=== PATIENT | male | born 1965 | race Two or more races ===

== ENCOUNTER 2018-08-10 22:07 | Emergency (ER) | payer OTHER ==
[~2018-08-10] VITALS: Ht 170.2 cm; Wt 85.7 kg
--- NOTE | 2018-08-10 22:22 | NUR ---
ED Nurse Note: PT CAME FOM HOME C/O LEFT THUMB LACERATION. LAC IS NOT ACTIVELY BLEEDING. PER PT HE CUT HIS FINGER 7 HOURS AGO WITH A CORPORATE RISK ANALYST PAIN 5/10
[2018-08-10 22:24] VITALS: BP 119/83
[2018-08-10] MEDS ORDERED: Bacitracin Oint UD TOPIC ONE ×2 (23:18→23:30)
[2018-08-10] MEDS ORDERED: CEPHALEXIN500 MG ORAL (23:26)
--- NOTE | 2018-08-10 23:26 | Emergency Room Report ---
History of Present Illness General Chief Complaint: Laceration Source: Patient Present Illness HPI Is a 52-year-old male who is right-hand dominant. He presents with chief complaint of laceration to his left hand. He was using a eyeglass lens grinder to cut a metal conduit. He slipped and cut himself at the base of the left thumb. This occurred 6-7 hours prior to arrival. Bleeding controlled. Throbbing pain in that area. Tetanus last year. No nausea no vomiting. No fever chills. Allergies: Coded Allergies: No Known Allergies (Unverified , 08/10/18) Patient History Past Medical History: see triage record, old chart reviewed Past Surgical History: other Pertinent Family History: none Social History: Denies: smoking Immunizations: UTD Reviewed Nursing Documentation: PMH: Agreed; PSxH: Agreed Nursing Documentation-PMH Past Medical History: No Stated History Review of Systems Eye: Denies: eye pain, blurred vision ENT: Denies: ear pain, nose congestion, throat swelling Respiratory: Denies: cough, shortness of breath Cardiovascular: Denies: chest pain, palpitations Gastrointestinal: Denies: abdominal pain, diarrhea, nausea, vomiting Musculoskeletal: Denies: back pain, joint pain Skin: Denies: rash Neurological: Denies: headache, numbness Endocrine: Denies: increased thirst, increased urine Hematologic/Lymphatic: Denies: easy bruising All Other Systems: negative except mentioned in HPI Physical Exam Vital Signs Date Time Temp Pulse Resp B/P (MAP) Pulse Ox O2 Delivery O2 Flow Rate FiO2 08/10/18 22:16 98.2 57 18 119/83 98 Room Air vitals normal Sp02 EP Interpretation: reviewed, normal General Appearance: well appearing, no apparent distress, alert Head: normocephalic, atraumatic Eyes: bilateral eye PERRL, bilateral eye EOMI ENT: hearing grossly normal, normal pharynx Neck: full range of motion, supple, no meningismus Respiratory: chest non-tender, lungs clear, normal breath sounds Cardiovascular #1: regular rate, rhythm, no murmur Gastrointestinal: normal bowel sounds, non tender, no mass, no organomegaly, no bruit, non-distended Musculoskeletal: back normal, gait/station normal, normal range of motion, other - Left hand: Over the hyperthenar eminence, there is a 3 cm laceration. There is a blackish color metallic foreign body. No tendon laceration. Full range of motion. Sensation normal. Psychiatric: mood/affect normal Skin: warm/dry Procedures Laceration/Wound Repair Laceration/Wound Repair : Consent: Verbal Wound Location: upper extremity Wound's Depth, Shape: linear, irregular, contused tissue Wound Length (cm): 3 Wound Explored: contaminated Irrigated w/ Saline (ccs): 1000 Betadine Prep?: Yes Anesthesia: Lidocaine w/ Epi Volume Anesthetic (ccs): 5 Wound Debrided: minimal Wound Repaired With: sutures Suture Size/Type: 4:0, proline Number of Sutures: 6 Patient Tolerated: Well Complications: None Medical Decision Making Diagnostic Impression: Primary Impression: Laceration Additional Impression: Foreign body in soft tissue ER Course Patient with laceration with a foreign body. Increased risk for infection. Tetanus up-to-date. No tendon laceration or nerve damage. Last Vital Signs Date Time Temp Pulse Resp B/P (MAP) Pulse Ox O2 Delivery O2 Flow Rate FiO2 08/10/18 22:24 98.2 57 18 119/83 98 Room Air Status: improved Disposition: HOME, SELF-CARE Condition: Stable Scripts Cephalexin* (KEFLEX*) 500 Mg Capsule 500 MG ORAL TID, #21 CAP 0 Refills Prov: Thom Dumont MD 08/10/18 Patient Instructions: Laceration Care, Adult Additional Instructions: Keep wound clean. Suture out in 7 days. Follow-up with your doctor. Return if worse. Thom Dumont MD Aug 10, 2018 23:26
[2018-08-10 23:31] VITALS: BP 119/83
--- NOTE | 2018-08-10 23:31 | NUR ---
ER DISCHARGE NOTE: Patient is cleared to be discharged per ERMD, pt is aox4, on room air, with stable vital signs. pt was given dc and prescription instructions, pt was able to verbalize understanding, pt id band removed. pt is able to ambulate with steady gait. pt took all belongings.
== END 2018-08-10 23:31 | disposition home or self-care (01) ==
LOC: EMR 22:51
DX: S61.022A Laceration with foreign body of left thumb without damage to nail, initial encounter (principal); W29.8XXA Contact with other powered hand tools and household machinery, initial encounter; Y92.9 Unspecified place or not applicable
CPT/HCPCS: 99282

== ENCOUNTER 2019-12-17 17:43 | Emergency (ER) | payer OTHER ==
[~2019-12-17] VITALS: Ht 170.2 cm; Wt 86.2 kg
[~2019-12-17 17:43] MED LIST: CEPHALEXIN500 MG ORAL
[2019-12-17 17:58] VITALS: BP 134/93
--- NOTE | 2019-12-17 17:58 | NUR ---
ED Nurse Note: Patient walked in to ER due to left index finger laceration x45 min. Per pt, he accidentally cut his finger with a knife. Pt applied pressure to control the bleeding. AAOx4, verbally responsive.
[2019-12-17] MEDS ORDERED: Tylenol #3 tab (300mg/30mg) ORAL ONE (18:15)
[2019-12-17] MEDS ORDERED: Lidocaine 1% MPF 10mg/ml 5ml INJ ONE (18:15)
[2019-12-17] MEDS ORDERED: Bacitracin Oint UD TOPIC ONE (18:15)
--- NOTE | 2019-12-17 19:05 | NUR ---
ED Nurse Note: Report received from ALONSO Burrows.
--- NOTE | 2019-12-17 19:07 | Emergency Room Report ---
History of Present Illness General Chief Complaint: Laceration Source: Patient Present Illness HPI 54-year-old male who is right-hand dominant presents to the emergency department complaining of laceration to the left index finger which occurred approximately 45 minutes prior to arrival. Patient reports he sustained a unintentional normal laceration from using a window scraper with the razor blade. Patient denies taking blood thinning medications. Patient reports moderate bleeding. Patient denies loss of feeling in the affected finger. 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 He reports he is up-to-date with tetanus vaccinations. He denies suspicion of foreign body. No other aggravating or relieving factors at this time. 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 Patient History Past Medical History: old chart reviewed Past Surgical History: none Pertinent Family History: none Reviewed Nursing Documentation: PMH: Agreed; PSxH: Agreed Nursing Documentation-PMH Past Medical History: No Stated History Review of Systems All Other Systems: negative except mentioned in HPI Physical Exam Vital Signs Date Time Temp Pulse Resp B/P (MAP) Pulse Ox O2 Delivery O2 Flow Rate FiO2 12/17/19 17:54 98.2 84 20 134/93 (107) 99 Room Air Sp02 EP Interpretation: reviewed, normal General Appearance: no apparent distress, alert, GCS 15, non-toxic Head: normocephalic, atraumatic Eyes: bilateral eye normal inspection, bilateral eye PERRL ENT: hearing grossly normal, normal voice Neck: full range of motion Respiratory: lungs clear, normal breath sounds, speaking full sentences Cardiovascular #1: regular rate, rhythm, normal capillary refill Musculoskeletal: back normal, normal range of motion, gait/station normal, non- tender, other - Left index finger laceration, normal range of motion against resistance of distal phalanyx Neurologic: alert, motor strength/tone normal, oriented x3, sensory intact, responsive, speech normal Psychiatric: judgement/insight normal Skin: laceration - Left distal index laceration approx 1.5 cm in length. Pt. able to fully extend and flex the left index finger. the DIP and PIP were isolated and pt. able to flex the index finger against resistance. No evidence of tendon involvement. Sensation is grossly intact distal to the laceration/ left index finger pad. Pt. has good capillary refill of the left index finger. Procedures Laceration/Wound Repair Laceration/Wound Repair : Consent: Emergent Wound Location: upper extremity - left index finger Wound's Depth, Shape: linear Wound Length (cm): 1 Wound Explored: contaminated Irrigated w/ Saline (ccs): 500 Betadine Prep?: No Anesthesia: 1% Lidocaine Volume Anesthetic (ccs): 5 Wound Debrided: None Wound Repaired With: sutures Suture Size/Type: 4:0 - three 5.0 sutures were placed, and 7 4.0 sutures Number of Sutures: 10 Layer Closure?: No Sterile Dressing Applied?: Yes Splint Applied?: Yes Type of Splint Applied: Left index finger splint. Sling Applied?: Yes Patient Tolerated: Well Complications: None Medical Decision Making PA Attestation Dr. Clements Is my supervising Physician whom patient management has been discussed with. Diagnostic Impression: Primary Impression: Laceration ER Course 54-year-old male who is right-hand dominant presents to the emergency department complaining of laceration to the left index finger which occurred approximately 45 minutes prior to arrival. Patient reports he sustained a unintentional normal laceration from using a window scraper with the razor blade. Patient denies taking blood thinning medications. Patient reports moderate bleeding. Patient denies loss of feeling in the affected finger. 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 He reports he is up-to-date with tetanus vaccinations. He denies suspicion of foreign body. No other aggravating or relieving factors at this time. Ddx considered but are not limited to laceration, tendon injury, cellulitis, amputation,circulatory compromise, FB just to name a few. Vital signs: are WNL, pt. is afebrile H&PE are most consistent with: Left distal index laceration approx 1.5 cm in length. Pt. able to fully extend and flex the left index finger. the DIP and PIP were isolated and pt. able to flex the index finger against resistance. No evidence of tendon involvement. Sensation is grossly intact distal to the laceration/ left index finger pad. Pt. has good capillary refill of the left index finger. ORDERS: none required at this time, the diagnosis is clinical ED INTERVENTIONS: - Tylenol # 3 PO - The wound was copiously irrigated with normal saline, tourniquet was applied at 181, and at 1815 bleeding was controlled and the laceration was explored for foreign body for which no FB was found. - pt. is anesthetized by digital finger block with 1%lidocaine using 5ml - The wound was approximated and closed using 10 interrupted sutures. - irrigation of dry blood from suture placement procedure, Bacitracin and sterile dressing is applied. - Left index finger splint applied by reproduction technician. Pt. remains neurovascularly intact. -Left arm Sling applied by reproduction technician. Pt. remains neurovascularly intact. Discussed with patient: That we make every effort to approximate the laceration as best as we can so that scarring will be as cosmetically pleasing as possible with our limited cosmetic skill set in the Emergency dept. Regardless of our best efforts there will be scarring after laceration repair. The extent of scarring is unknown at this time. d/w Pt. need for hand specialist evaluation as an outpatient. DISCHARGE: At this time pt. is stable for d/c to home. Will provide printed patient care instructions, and any necessary prescriptions. Care plan and follow up instructions have been discussed with the patient prior to discharge. Last Vital Signs Date Time Temp Pulse Resp B/P (MAP) Pulse Ox O2 Delivery O2 Flow Rate FiO2 12/17/19 17:58 98.2 84 20 134/93 99 Room Air Status: improved Disposition: HOME, SELF-CARE Condition: Stable Scripts Mupirocin* (MUPIROCIN*) 22 Gm Oint...g. 1 APPLIC TOPIC THREE TIMES A DAY, #22 GM Prov: Susie Merchant 12/17/19 Cephalexin* (KEFLEX*) 500 Mg Capsule 500 MG ORAL EVERY 12 HOURS, #14 CAP 0 Refills Prov: Susie Merchant 12/17/19 Referrals: NOT CHOSEN [facility]/,REFERRING (PCP) Patient Instructions: Laceration Care, Adult Additional Instructions: Take medications as directed. SUTURES TO BE REMOVED IN 14 DAYS Follow up with a Primary Care Provider in 3-5 days, even if your symptoms have resolved. --Please review list of primary care clinics, if you do not already have a primary care provider Return sooner to ED if new symptoms occur, or current symptoms become worse. - Please note that this Emergency Department Report was dictated using Dragon amf mechanic technology software, occasionally this can lead to erroneous entry secondary to interpretation by the dictation equipment. Susie Merchant Dec 17, 2019 19:07
[2019-12-17] MEDS ORDERED: MUPIROCIN22 GM TOPIC (19:15)
[2019-12-17] MEDS ORDERED: CEPHALEXIN500 MG ORAL (19:15)
--- NOTE | 2019-12-17 19:30 | NUR ---
ED Nurse Note: Bacitracin, dressing and splint/sling applied to patient by tech. Pt also reports decreased pain.
[2019-12-17 19:50] VITALS: BP 125/85
--- NOTE | 2019-12-17 19:50 | NUR ---
ER DISCHARGE NOTE: Patient is cleared to be discharged per ERMD, pt is aox4, on room air, with stable vital signs. pt was given dc and prescription instructions, pt was able to verbalize understanding, pt id band removed. pt is able to ambulate with steady gait. pt took all belongings and accompanied by family member.
== END 2019-12-17 19:30 | disposition home or self-care (01) ==
LOC: EMR 17:55
DX: S61.211A Laceration without foreign body of left index finger without damage to nail, initial encounter (principal); W26.9XXA Contact with unspecified sharp object(s), initial encounter; Y92.9 Unspecified place or not applicable; Z89.022 Acquired absence of left finger(s)
CPT/HCPCS: 99283

== ENCOUNTER 2019-12-29 22:18 | Emergency (ER) | payer OTHER ==
[~2019-12-29] VITALS: Ht 170.2 cm; Wt 88.5 kg
[~2019-12-29 22:18] MED LIST changes: +MUPIROCIN22 GM TOPIC
[2019-12-29 22:30] VITALS: BP 115/77
--- NOTE | 2019-12-29 23:34 | Emergency Room Report ---
History of Present Illness General Chief Complaint: Wound Recheck/Suture Removal Source: Patient Present Illness HPI Is a 54-year-old male who is right-hand dominant. He presents with chief complaint of suture removal. He sustained a laceration to his left index finger 10-11 days ago. He was sutured. Now he is here for suture removal. There is no infection but he has some tenderness to the ulnar aspect of the tip of his index finger. No fever chills. No nausea no vomiting. Worse with palpation. Better with rest. 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 Patient History Past Medical History: see triage record, old chart reviewed Past Surgical History: none Pertinent Family History: none Social History: Denies: smoking Immunizations: other Reviewed Nursing Documentation: PMH: Agreed; PSxH: Agreed Nursing Documentation-PMH Past Medical History: No Stated History Review of Systems Eye: Denies: eye pain, blurred vision ENT: Denies: ear pain, nose congestion, throat swelling Respiratory: Denies: cough, shortness of breath Cardiovascular: Denies: chest pain, palpitations Gastrointestinal: Denies: abdominal pain, diarrhea, nausea, vomiting Musculoskeletal: Denies: back pain, joint pain Skin: Denies: rash Neurological: Denies: headache, numbness Endocrine: Denies: increased thirst, increased urine Hematologic/Lymphatic: Denies: easy bruising All Other Systems: negative except mentioned in HPI Physical Exam Vital Signs Date Time Temp Pulse Resp B/P (MAP) Pulse Ox O2 Delivery O2 Flow Rate FiO2 12/29/19 22:29 98.8 80 16 115/77 (90) 97 Room Air Sp02 EP Interpretation: reviewed, normal General Appearance: well appearing, no apparent distress, alert Head: normocephalic, atraumatic Eyes: bilateral eye PERRL, bilateral eye EOMI ENT: hearing grossly normal, normal pharynx Neck: full range of motion, supple, no meningismus Respiratory: chest non-tender, lungs clear, normal breath sounds Cardiovascular #1: regular rate, rhythm, no murmur Gastrointestinal: normal bowel sounds, non tender, no mass, no organomegaly, no bruit, non-distended Musculoskeletal: back normal, normal range of motion, gait/station normal, other - Left Index finger: Wound is well-healed. No evidence of infection. He does have tenderness with palpation on the lateral aspect of the tip of the finger. Psychiatric: mood/affect normal Procedures Additional Procedure Procedure Narrative Procedure: Suture removal Indication: Laceration repair Description: Patient is very sensitive with manipulation of the sutures. I did a digital block with 1% lidocaine without epinephrine. Remove the sutures using a forcep and 11 blade scalpel. Patient tolerated surgery without any problem. Medical Decision Making Diagnostic Impression: Primary Impression: Encounter for removal of sutures ER Course Here for suture removal. He has sensitivity to the skin. This is probably secondary to nerve injury. No tendon laceration. No foreign body. No infection. Last Vital Signs Date Time Temp Pulse Resp B/P (MAP) Pulse Ox O2 Delivery O2 Flow Rate FiO2 12/29/19 22:30 98.8 80 16 115/77 97 Room Air Status: improved Disposition: HOME, SELF-CARE Condition: Stable Referrals: NOT CHOSEN [facility]/MD,REFERRING (PCP) Patient Instructions: Wound Check Additional Instructions: Follow-up with your doctor in 7 days as needed. Return if worse. Thom Dumont MD Dec 29, 2019 23:34
[2019-12-29 23:35] VITALS: BP 118/85
== END 2019-12-29 23:35 | disposition home or self-care (01) ==
LOC: EMR 22:44
DX: Z48.02 Encounter for removal of sutures (principal)
CPT/HCPCS: 99281